=== PATIENT | male | born 1970 ===

== ENCOUNTER 2017-11-06 12:23 | Emergency (ER) | payer SELFPAY | END 2017-11-06 14:30 | disposition left against medical advice (07) | LOC: ED 12:23 | DX: Z53.21 Procedure and treatment not carried out due to patient leaving prior to being seen by health care provider (principal) ==

== ENCOUNTER 2017-11-07 16:17 | Emergency (ER) | payer SELFPAY | END 2017-11-07 19:25 | disposition left against medical advice (07) | LOC: ED 16:17 | DX: Z53.21 Procedure and treatment not carried out due to patient leaving prior to being seen by health care provider (principal) ==